=== PATIENT | female | born 1990 | race Caucasian/White ===

== ENCOUNTER 2020-03-06 19:36 | Emergency (ER) | payer BC, OTHER ==
[2020-03-06] MEDS ORDERED: Sodium Chloride 0.9% 10 ML Syringe FLUSH PRN (19:44)
[2020-03-06] MEDS ORDERED: diphenhydrAMINE 50 MG/ML SDV IVPUSH ONE (19:47)
[2020-03-06] MEDS ORDERED: Lactated Ringers 1,000 ML IV ONE (19:47)
[2020-03-06] MEDS ORDERED: HYDROmorphone 0.5 MG/0.5 ML Syringe IV ONE ×2 (19:47→20:48)
--- NOTE | 2020-03-06 20:02 | EDM.PDOC ---
ED HPI GENERAL MEDICAL PROBLEM - General Stated Complaint: pelvic pain Time Seen by Provider: 03/06/20 19:45 Source of Information: Reports: Patient, RN Notes Reviewed - History of Present Illness INITIAL COMMENTS - FREE TEXT/NARRATIVE: Patient comes emergency department today with a rather abrupt onset of right lower abdominal pelvic pain starting at 1930 tonight. Patient has never had pain like this. Pain started rather abruptly at 1930 in her right lower abdomen and pelvic region. She started her menstrual cycle yesterday which was normal. It is the normal 28-day cycle for her. She is unsure if she has any risk of . She has had normal vaginal bleeding for her typical menstrual cycle. She has had no surgeries in the past. She has had some nausea without vomiting. No fever no chills. No hematuria dysuria or urinary frequency. No flank pain. No diarrhea. NO COVID exposure No COVID exposure. Onset: Sudden Onset Date: 03/06/20 Onset Time: 19:30 Right low pelvic pain Pain Score (Numeric/FACES): 10 - Related Data Allergies Allergy/AdvReac Type Severity Reaction Status Date / Time No Known Allergies Allergy Verified 03/06/20 20:24 Home Meds: Home Meds . [No Known Home Meds] 03/06/20 [History] ED ROS GENERAL - Review of Systems Review Of Systems: Comprehensive ROS is negative, except as noted in HPI. ED EXAM, GI/ABD - Physical Exam Exam: See Below Text/Narrative:: Patient is moaning and constantly rolling about the cot and appears quite uncomfortable. Exam Limited By: No Limitations General Appearance: Alert, WD/WN, Moderate Distress Eyes: Bilateral: EOMI Ears: Normal External Exam Nose: Normal Inspection Throat/Mouth: Normal Inspection Head: Atraumatic, Normocephalic Neck: Normal Inspection, Supple, Non-Tender Respiratory/Chest: No Respiratory Distress, Lungs Clear, Normal Breath Sounds, No Accessory Muscle Use, Chest Non-Tender Cardiovascular: Normal Peripheral Pulses, Regular Rate, Rhythm GI/Abdominal Exam: Normal Bowel Sounds, Soft, Guarding (Very low RLQ pelvis region. Negative McBurneys point. ). No: Rigid, Rebound (Female) Exam: Deferred Rectal (Female) Exam: Deferred Back Exam: Normal Inspection, Full Range of Motion Extremities: Normal Inspection, Normal Range of Motion, Normal Capillary Refill Neurological: Alert, Oriented, Normal Cognition, No Motor/Sensory Deficits Psychiatric: Normal Affect, Normal Mood Skin Exam: Warm, Dry, Intact, Normal Color, No Rash Lymphatic: No Adenopathy Course - Vital Signs Last Recorded V/S: Last Vital Signs Temp 97 F 03/06/20 19:36 Pulse 72 03/06/20 19:36 Resp 24 H 03/06/20 19:36 BP 140/83 03/06/20 19:36 Pulse Ox 100 03/06/20 19:36 - Orders/Labs/Meds Orders: Active Orders 24 hr Category Date Time Status DRUG SCREEN, URINE (NPL) Stat Lab 03/06/20 19:45 Received Sodium Chloride 0.9% [Saline Flush] Med 03/06/20 19:44 Active 10 ml FLUSH ASDIRECTED PRN Peripheral IV Insertion Adult [OM.PC] Stat Oth 03/06/20 19:44 Ordered Medication Orders Sodium Chloride (Saline Flush) 10 ml FLUSH ASDIRECTED PRN PRN Reason: Keep Vein Open Labs: Laboratory Tests 03/06/20 03/06/20 03/06/20 Range/Units 19:45 19:45 19:55 WBC 12.5 H (4.0-10.0) x10^3/uL RBC 4.50 (4.00-5.50) x10^6/uL Hgb 13.2 (12.0-16.0) g/dL Hct 38.3 (33.0-47.0) % MCV 85.1 (78.0-93.0) fL MCH 29.3 (26.0-32.0) pg MCHC 34.5 (32.0-36.0) g/dL RDW Coeff of Jackson 12.4 (10.0-15.0) % Plt Count 605 H (130-400) x10^3/uL Neut % (Auto) 41.5 L (50.0-80.0) % Lymph % (Auto) 45.2 (25.0-50.0) % [place] % (Auto) 11.7 H (2.0-11.0) % Eos % (Auto) 1.4 (0.0-4.0) % Baso % (Auto) 0.2 (0.2-1.2) % Sodium (136-145) mmol/L Potassium (3.5-5.1) mmol/L Chloride (98-107) mmol/L Carbon Dioxide (21-32) mmol/L Anion Gap (10-20) mmol/L BUN (7-18) mg/dL Creatinine (0.55-1.02) mg/dL Est Cr Clr Drug Dosing Estimated GFR (MDRD) Glucose (74-106) mg/dL Calcium (8.5-10.1) mg/dL Corrected Calcium (8.5-10.1) mg/dL Total Bilirubin (0.2-1.0) mg/dL AST (15-37) U/L ALT (14-59) U/L Alkaline Phosphatase (46-116) U/L Total Protein (6.4-8.2) g/dL Albumin (3.4-5.0) g/dL Globulin Albumin/Globulin Ratio Urine Color Yellow (YELLOW) Urine Appearance Cloudy H (CLEAR) Urine pH 7.5 (5.0-8.0) Ur Specific Hudson 1.025 Urine Protein 30 H (NEGATIVE) mg/dL Urine Glucose (UA) Negative (NEGATIVE) mg/dL Urine Ketones Negative (NEGATIVE) mg/dL Urine Occult Blood Moderate H (NEGATIVE) Urine Nitrite Negative (NEGATIVE) Urine Bilirubin Negative (NEGATIVE) Urine Urobilinogen 1.0 (0.2) EU/dL Ur Leukocyte Esterase Negative (NEGATIVE) Urine RBC 30-40 H (NOT SEEN) /HPF Urine WBC 0-5 (NOT SEEN) /HPF Ur Squamous Epith Cells Few H (NEGATIVE) /HPF Amorphous Sediment Few Urine Bacteria Rare (NEGATIVE) /HPF Urine Mucus Occasional H (NEGATIVE) /LPF Urine HCG, Qual Negative (NEGATIVE) 03/06/20 Range/Units 19:55 WBC (4.0-10.0) x10^3/uL RBC (4.00-5.50) x10^6/uL Hgb (12.0-16.0) g/dL Hct (33.0-47.0) % MCV (78.0-93.0) fL MCH (26.0-32.0) pg MCHC (32.0-36.0) g/dL RDW Coeff of Jackson (10.0-15.0) % Plt Count (130-400) x10^3/uL Neut % (Auto) (50.0-80.0) % Lymph % (Auto) (25.0-50.0) % [place] % (Auto) (2.0-11.0) % Eos % (Auto) (0.0-4.0) % Baso % (Auto) (0.2-1.2) % Sodium 140 (136-145) mmol/L Potassium 3.3 L (3.5-5.1) mmol/L Chloride 103 (98-107) mmol/L Carbon Dioxide 24 (21-32) mmol/L Anion Gap 16.3 (10-20) mmol/L BUN 18 (7-18) mg/dL Creatinine 1.1 H (0.55-1.02) mg/dL Est Cr Clr Drug Dosing TNP Estimated GFR (MDRD) 58 Glucose 122 H (74-106) mg/dL Calcium 9.3 (8.5-10.1) mg/dL Corrected Calcium 9.06 (8.5-10.1) mg/dL Total Bilirubin 0.3 (0.2-1.0) mg/dL AST 15 (15-37) U/L ALT 18 (14-59) U/L Alkaline Phosphatase 54 (46-116) U/L Total Protein 7.3 (6.4-8.2) g/dL Albumin 4.3 (3.4-5.0) g/dL Globulin 3.0 Albumin/Globulin Ratio 1.43 Urine Color (YELLOW) Urine Appearance (CLEAR) Urine pH (5.0-8.0) Ur Specific [place] Urine Protein (NEGATIVE) mg/dL Urine Glucose (UA) (NEGATIVE) mg/dL Urine Ketones (NEGATIVE) mg/dL Urine Occult Blood (NEGATIVE) Urine Nitrite (NEGATIVE) Urine Bilirubin (NEGATIVE) Urine Urobilinogen (0.2) EU/dL Ur Leukocyte Esterase (NEGATIVE) Urine RBC (NOT SEEN) /HPF Urine WBC (NOT SEEN) /HPF Ur Squamous Epith Cells (NEGATIVE) /HPF Amorphous Sediment Urine Bacteria (NEGATIVE) /HPF Urine Mucus (NEGATIVE) /LPF Urine HCG, Qual (NEGATIVE) Meds: Medications Generic Name Dose Route Start Last Admin Trade Name Freq PRN Reason Stop Dose Admin Sodium Chloride 10 ml 03/06/20 19:44 Saline Flush FLUSH ASDIRECTED PRN Keep Vein Open Discontinued Medications Generic Name Dose Route Start Last Admin Trade Name Freq PRN Reason Stop Dose Admin Diphenhydramine HCl 25 mg 03/06/20 19:47 03/06/20 20:00 Benadryl IVPUSH 03/06/20 19:48 25 mg ONETIME ONE Administration Hydromorphone HCl 0.5 mg 03/06/20 19:47 03/06/20 19:58 Dilaudid IV 03/06/20 19:48 0.5 mg ONETIME ONE Administration Hydromorphone HCl 1 mg 03/06/20 20:09 03/06/20 20:15 Dilaudid IVPUSH 03/06/20 20:10 1 mg ONETIME ONE Administration Hydromorphone HCl 0.5 mg 03/06/20 20:48 03/06/20 20:54 Dilaudid IV 03/06/20 20:49 0.5 mg ONETIME ONE Administration Hydromorphone HCl 1 mg 03/06/20 21:20 Dilaudid IVPUSH 03/06/20 21:21 ONETIME ONE Lactated Ringer's 1,000 mls @ 999 mls/hr 03/06/20 19:47 03/06/20 19:50 Ringers, Lactated IV 03/06/20 20:47 999 mls/hr ONETIME ONE Administration - Re-Assessments/Exams Free Text/Narrative Re-Assessment/Exam: 03/06/20 20:02 IV LR 1 liter wide open. Benadryl for nausea 25mg IVP Dilaudid 0.5mg IVP for pain Labs drawn UA obtained. 03/06/20 20:21 Patient did not have much pain relief with the initial dose of Dilaudid we repeated her milligram of Dilaudid but although she was still quite uncomfortable. Reexamination of her abdomen shows a very tender guarding rebound to the right very low abdomen more pelvic region. Still a negative McBurney sign. The rest of the abdomen is soft. Her urine hCG is negative. Her white count is minimally elevated at 12.5. With her abrupt onset of very low right lower pelvic pain I have concerns for an acute ovarian torsion. We do not have ultrasound available to evaluate this. I called at 2019 to [facility] call to see if we could transfer her for an ultrasound to evaluate for a possible ovarian torsion. They will call back they are busy with other calls at this time. 03/06/20 21:28 I finally called again and got ahold of Dr. Yap at [facility] in the ED. HPI ER COURSE findings and concerns were relayed for the concern of a ovarian torsion and her pain has yet again returned and she is quite uncomfortable and rolling about in the bed again. He accepted the patient in transfer at this time. I discussed the plan of care with the patient and she was given another dose of Dilaudid. She is comfortable with this plan and her questions answered. Departure - Departure Time of Disposition: 21:18 Disposition: DC/Tfer to [facility] 02 Clinical Impression: Pelvic pain - Discharge Information Referrals: Rohit Arredondo PA-C [Primary Care Provider] - Forms: Interfacility Transfer [facility] Sepsis Event Note (ED) - Focused Exam Vital Signs: Vital Signs Temp Pulse Resp BP Pulse Ox 03/06/20 19:36 97 F 72 24 H 140/83 100 - My Orders Last 24 Hours: My Active Orders 03/06/20 19:44 Sodium Chloride 0.9% [Saline Flush] 10 ml FLUSH ASDIRECTED PRN Peripheral IV Insertion Adult [OM.PC] Stat 03/06/20 19:45 DRUG SCREEN, URINE (NPL) Stat - Assessment/Plan Last 24 Hours: My Active Orders 03/06/20 19:44 Sodium Chloride 0.9% [Saline Flush] 10 ml FLUSH ASDIRECTED PRN Peripheral IV Insertion Adult [OM.PC] Stat 03/06/20 19:45 DRUG SCREEN, URINE (NPL) Stat Assessment:: Very low right abd more pelvic pain. Concerns for ovarian torsion. Plan: Transfer by ambulance to [facility] for further care and evaluation.
[2020-03-06] MEDS ORDERED: HYDROmorphone 1 MG/ML Syringe IVPUSH ONE ×2 (20:09→21:20)
[2020-03-06 20:15] LABS: CHLORIDE,CL 103 mmol/L (98-107); SODIUM,NA 140 mmol/L (136-145)
[2020-03-06 20:17] LABS: ANION GAP 16.3 mmol/L (10-20)
== END 2020-03-06 21:46 | disposition short-term general hospital (02) ==
LOC: VM.ED 19:36
DX: R10.2 Pelvic and perineal pain (principal)
CPT/HCPCS: 80053; 80307; 81001; 81025; 85025; 96374; 96375; 96376; 99283; 99285-25; J1170; J1200; J7120

== ENCOUNTER 2021-01-21 14:44 | Emergency (ER) | payer MEDICAID ==
[2021-01-21] MEDS ORDERED: Acetaminophen/HYDROcodone 325-5 MG Tab PO ONE (14:53)
[2021-01-21] MEDS ORDERED: Ibuprofen 200 MG Tab PO ONE (14:53)
[2021-01-21] MEDS ORDERED: Take Home: Acetaminophen/HYDROcodone 325-5 MG, 5 Tab Pack PO ONE (15:31)
--- NOTE | 2021-01-21 15:35 | CR ---
[id number] RAD/RAD Wrist Left 3V Min EXAM: 4 VIEWS LEFT WRIST. INDICATION: FALL, LEFT WRIST PAIN. COMPARISON: None. DISCUSSION: Acute impacted and angulated fracture of the distal left radial metaphysis. There is extension of the fracture into the radiocarpal joint. Additionally there is a minimally displaced left ulnar styloid fracture. No other fractures are identified. IMPRESSION: 1. As above. Rafat Fernández DO 01/21/21 1533 Thank you for allowing us to participate in the care of your patient.
--- NOTE | 2021-01-21 19:35 | EDM.PDOC ---
ED HPI GENERAL MEDICAL PROBLEM - General Chief Complaint: Upper Extremity Injury/Pain Stated Complaint: POSSIBLE BROKEN WRIST Time Seen by Provider: 01/21/21 14:45 Source of Information: Reports: Patient History Limitations: Reports: No Limitations - History of Present Illness INITIAL COMMENTS - FREE TEXT/NARRATIVE: Pt. presents to ER with complaints of L wrist pain post fall. Pt. states that she fell while attempting to use a hoverboard. Denies injury elsewhere. Pt. is complaining of significant L wrist/distal forearm pain. No significant neurovascular complaints. She was able to ambulate into ER on her own. Onset: Today Location: Reports: Upper Extremity, Left Quality: Reports: Ache, Throbbing Left Wrist Pain Score (Numeric/FACES): 10 - Related Data Allergies Allergy/AdvReac Type Severity Reaction Status Date / Time No Known Allergies Allergy Verified 01/21/21 14:53 Home Meds: Home Meds . [No Known Home Meds] 03/06/20 [History] Past Medical History - Past Health History Medical/Surgical History: Denies Medical/Surgical History [employer]MENT [employer] History: Reports: Social & Family History - Tobacco Use Tobacco Use Status *Q: Never Tobacco User Review of Systems - Review of Systems Review Of Systems: See Below Musculoskeletal: Reports: Arm Pain, Joint Pain Skin: Reports: No Symptoms ED EXAM, GENERAL - Physical Exam Exam: See Below Exam Limited By: No Limitations General Appearance: Alert, WD/WN, No Apparent Distress Extremities: Normal Capillary Refill, Joint Swelling, Arm Pain, Limited Range of Motion. No: Mottled, Pallor ED TRAUMA EXTREMITY PROCEDURES - Splinting Left Upper Extremity Pre-Procedure NV Status: Normal Post-Procedure NV Status: Normal Splint Material: Fiberglass Splint Design: Volar Applied & Form Fitted By: Provider, Nurse Provider Post-Splint Application NV Check: NV Status Normal, Good Position Complications: No Course - Vital Signs Last Recorded V/S: Last Vital Signs Temp 36.9 C 01/21/21 14:45 Pulse 79 01/21/21 14:45 Resp 16 01/21/21 14:45 BP 152/90 H 01/21/21 14:45 Pulse Ox 100 01/21/21 14:45 - Orders/Labs/Meds Meds: Medications Discontinued Medications Generic Name Dose Route Start Last Admin Trade Name Freq PRN Reason Stop Dose Admin Hydrocodone Bitart/Acetaminophen 1 tab 01/21/21 14:53 01/21/21 14:59 Acetaminophen/Hydrocodone 325-5 Mg Tab PO 01/21/21 14:54 1 tab ONETIME ONE Administration Hydrocodone Bitart/Acetaminophen 1 packet 01/21/21 15:31 01/21/21 15:35 Take Home: Acetaminophen/Hydrocodone 325-5 Mg, 5 Tab Pack PO 01/21/21 15:32 1 packet ONETIME ONE Administration Ibuprofen 600 mg 01/21/21 14:53 01/21/21 14:59 Ibuprofen 200 Mg Tab PO 01/21/21 14:54 600 mg ONETIME ONE Administration - Radiology Interpretation Free Text/Narrative:: Impacted L distal radius fracture and ulnar styloid fracture were noted. Departure - Departure Time of Disposition: 16:00 Disposition: Home, Self-Care 01 Condition: Good Clinical Impression: Distal radius fracture, left - Discharge Information Instructions: Acetaminophen; Hydrocodone tablets or capsules, Radial Fracture, Wrist Splint, Adult Referrals: Rohit Arredondo PA-C [Primary Care Provider] - Forms: ED Department Discharge Additional Instructions: Either [facility] or I will contact your regarding an appointment. Keep arm elevated. Ice for 20 min every hour Keep splint on an dry. Ibuprofen 200mg 3 tabs every 6 hours Lortab 5/325mg 1 every 4-6 hours as needed for pain Sepsis Event Note (ED) - Evaluation Sepsis Screening Result: No Definite Risk - Focused Exam Vital Signs: Vital Signs Temp Pulse Resp BP Pulse Ox 01/21/21 14:45 36.9 C 79 16 152/90 H 100 - Problem List Review Problem List Initiated/Reviewed/Updated: Yes - Assessment/Plan Plan: Attempted calling to discuss case with [facility] approx. 6 times, but the line was busy every time. Will work on getting the patient a follow-up appointment set up tomorrow when the clinic is open. Fracture does not require immediate reduction, and CMS is intact to the extremity. Fibreglas volar splint was placed. Pt. was started on lortab 5/325mg with instructions to take one every 4-6 hours.
== END 2021-01-21 15:40 | disposition home or self-care (01) ==
LOC: VM.ED 14:44
DX: S52.592A Other fractures of lower end of left radius, initial encounter for closed fracture (principal); S52.612A Displaced fracture of left ulna styloid process, initial encounter for closed fracture; V00.848A Other accident with standing micro-mobility pedestrian conveyance, initial encounter
CPT/HCPCS: 29125; 73110-LT; 99283; 99283-25; A9270-GY

== ENCOUNTER 2021-02-17 03:35 | Emergency (ER) | payer MEDICAID ==
[2021-02-17] MEDS ORDERED: Orphenadrine 60 MG/2 ML Inj IM STA (03:56)
[2021-02-17] MEDS ORDERED: Ketorolac 30 MG/ML SDV IM ONE (03:56)
--- NOTE | 2021-02-17 03:56 | EDM.PDOC ---
ED HPI GENERAL MEDICAL PROBLEM - General Chief Complaint: Abdominal Pain Stated Complaint: Low abdominal cramping, recent IUD placement Time Seen by Provider: 02/17/21 03:45 Source of Information: Reports: Patient History Limitations: Reports: No Limitations - History of Present Illness INITIAL COMMENTS - FREE TEXT/NARRATIVE: Patient comes emergency department today with complaints of abdominal cramping. This patient on Thursday had a IUD placed in the clinic. Shortly after the placement of the IUD she has had continued what she relates as. Cramping in her low abdomen that radiates into her back. This has been constant and persistent since the placement of her IUD on Thursday. She has had a small amount of vaginal bleeding. She has had no urinary frequency dysuria or hematuria. No fever no chills. The symptoms have been the same since the placement of her IUD. She did have an ultrasound on 02/14/2021 which she was told showed a appropriately placed intrauterine IUD. She has no vaginal discharge. She has been taking Tylenol and ibuprofen with improvement of pain but it continues. No flank pain. No weakness dizziness lightheadedness. No cough or congestion. No chest pain. low abdomen Pain Score (Numeric/FACES): 8 - Related Data Allergies Allergy/AdvReac Type Severity Reaction Status Date / Time No Known Allergies Allergy Verified 02/17/21 07:36 Home Meds: Home Meds Ketorolac [Toradol] 10 mg PO Q6H PRN #8 tab 02/17/21 [Rx] Orphenadrine [Norflex] 100 mg PO BID PRN #4 tab 02/17/21 [Rx] Past Medical History - Past Health History Medical/Surgical History: Denies Medical/Surgical History [employer] History: Reports: ED ROS GENERAL - Review of Systems Review Of Systems: Comprehensive ROS is negative, except as noted in HPI. ED EXAM, GI/ABD - Physical Exam Exam: See Below Exam Limited By: No Limitations General Appearance: Alert, WD/WN, No Apparent Distress Respiratory/Chest: No Respiratory Distress, Lungs Clear, Normal Breath Sounds, No Accessory Muscle Use, Chest Non-Tender Cardiovascular: Normal Peripheral Pulses, Regular Rate, Rhythm GI/Abdominal Exam: Normal Bowel Sounds, Soft, Non-Tender Back Exam: Normal Inspection. No: CVA Tenderness (L), CVA Tenderness (R) Extremities: Normal Inspection, Normal Range of Motion, No Pedal Edema, Normal Capillary Refill Neurological: Alert, Oriented, Normal Cognition, No Motor/Sensory Deficits Psychiatric: Normal Affect, Normal Mood Skin Exam: Warm, Dry, Intact, Normal Color, No Rash Lymphatic: No Adenopathy Course - Vital Signs Last Recorded V/S: Last Vital Signs Temp 97.7 F 02/17/21 03:35 Pulse 77 02/17/21 03:35 Resp 16 02/17/21 03:35 BP 118/81 02/17/21 03:35 Pulse Ox - Orders/Labs/Meds Labs: Laboratory Tests 02/17/21 02/17/21 02/17/21 Range/Units 03:54 03:54 03:54 WBC 5.4 (4.0-10.0) x10^3/uL RBC 4.57 (4.00-5.50) x10^6/uL Hgb 13.3 (12.0-16.0) g/dL Hct 39.1 (33.0-47.0) % MCV 85.6 (78.0-93.0) fL MCH 29.1 (26.0-32.0) pg MCHC 34.0 (32.0-36.0) g/dL RDW Coeff of [place] 12.9 (10.0-15.0) % Plt Count 335 (130-400) x10^3/uL Immature Gran % (Auto) 0.00 (0.00-0.43) % Neut % (Auto) 47.9 L (50.0-80.0) % Lymph % (Auto) 35.9 (25.0-50.0) % Branch % (Auto) 15.1 H (2.0-11.0) % Eos % (Auto) 0.7 (0.0-4.0) % Baso % (Auto) 0.4 (0.2-1.2) % Neut # (Auto) 2.6 (1.8-7.7) x10^3/uL Lymph # (Auto) 1.9 (1.0-4.8) x10^3/uL Branch # (Auto) 0.8 (0.0-0.8) x10^3/uL Eos # (Auto) 0.0 (0.0-0.5) x10^3/uL Baso # (Auto) 0.0 (0.0-0.2) x10^3/uL Immature Gran # (Auto) 0.00 (0.00-0.07) x10^3/uL Sodium 142 (136-145) mmol/L Potassium 3.6 (3.5-5.1) mmol/L Chloride 106 (98-107) mmol/L Carbon Dioxide 28 (21-32) mmol/L Anion Gap 11.6 (5-15) mmol/L BUN 15 (7-18) mg/dL Creatinine 0.7 (0.55-1.02) mg/dL Est Cr Clr Drug Dosing TNP Estimated GFR (MDRD) > 60 Glucose 91 (70-99) mg/dL Lactic Acid 1.4 (0.4-2.0) mmol/L Calcium 8.5 (8.5-10.1) mg/dL Corrected Calcium 8.8 (8.5-10.1) mg/dL Total Bilirubin 0.2 (0.2-1.0) mg/dL AST 14 L (15-37) U/L ALT 17 (14-59) U/L Alkaline Phosphatase 64 (46-116) U/L Total Protein 6.8 (6.4-8.2) g/dL Albumin 3.6 (3.4-5.0) g/dL Globulin 3.2 Albumin/Globulin Ratio 1.13 Urine Color (YELLOW) Urine Appearance (CLEAR) Urine pH (5.0-8.0) Ur Specific [place] Urine Protein (NEGATIVE) mg/dL Urine Glucose (UA) (NEGATIVE) mg/dL Urine Ketones (NEGATIVE) mg/dL Urine Occult Blood (NEGATIVE) Urine Nitrite (NEGATIVE) Urine Bilirubin (NEGATIVE) Urine Urobilinogen (0.2) EU/dL Ur Leukocyte Esterase (NEGATIVE) Urine RBC (NOT SEEN) /HPF Urine WBC (NOT SEEN) /HPF Ur Squamous Epith Cells (NOT SEEN) /HPF Calcium Oxalate Crystal (NOT SEEN) /HPF Urine Bacteria (NOT SEEN) /HPF Urine Mucus (NOT SEEN) /LPF Urine HCG, Qual (NEGATIVE) 02/17/21 02/17/21 Range/Units 04:20 04:20 WBC (4.0-10.0) x10^3/uL RBC (4.00-5.50) x10^6/uL Hgb (12.0-16.0) g/dL Hct (33.0-47.0) % MCV (78.0-93.0) fL MCH (26.0-32.0) pg MCHC (32.0-36.0) g/dL RDW Coeff of [place] (10.0-15.0) % Plt Count (130-400) x10^3/uL Immature Gran % (Auto) (0.00-0.43) % Neut % (Auto) (50.0-80.0) % Lymph % (Auto) (25.0-50.0) % Branch % (Auto) (2.0-11.0) % Eos % (Auto) (0.0-4.0) % Baso % (Auto) (0.2-1.2) % Neut # (Auto) (1.8-7.7) x10^3/uL Lymph # (Auto) (1.0-4.8) x10^3/uL Branch # (Auto) (0.0-0.8) x10^3/uL Eos # (Auto) (0.0-0.5) x10^3/uL Baso # (Auto) (0.0-0.2) x10^3/uL Immature Gran # (Auto) (0.00-0.07) x10^3/uL Sodium (136-145) mmol/L Potassium (3.5-5.1) mmol/L Chloride (98-107) mmol/L Carbon Dioxide (21-32) mmol/L Anion Gap (5-15) mmol/L BUN (7-18) mg/dL Creatinine (0.55-1.02) mg/dL Est Cr Clr Drug Dosing Estimated GFR (MDRD) Glucose (70-99) mg/dL Lactic Acid (0.4-2.0) mmol/L Calcium (8.5-10.1) mg/dL Corrected Calcium (8.5-10.1) mg/dL Total Bilirubin (0.2-1.0) mg/dL AST (15-37) U/L ALT (14-59) U/L Alkaline Phosphatase (46-116) U/L Total Protein (6.4-8.2) g/dL Albumin (3.4-5.0) g/dL Globulin Albumin/Globulin Ratio Urine Color Yellow (YELLOW) Urine Appearance Clear (CLEAR) Urine pH 6.0 (5.0-8.0) Ur Specific [place] >=1.030 Urine Protein Negative (NEGATIVE) mg/dL Urine Glucose (UA) Negative (NEGATIVE) mg/dL Urine Ketones Negative (NEGATIVE) mg/dL Urine Occult Blood Small H (NEGATIVE) Urine Nitrite Negative (NEGATIVE) Urine Bilirubin Negative (NEGATIVE) Urine Urobilinogen 0.2 (0.2) EU/dL Ur Leukocyte Esterase Negative (NEGATIVE) Urine RBC 0-5 (NOT SEEN) /HPF Urine WBC 0-5 (NOT SEEN) /HPF Ur Squamous Epith Cells Few H (NOT SEEN) /HPF Calcium Oxalate Crystal Few H (NOT SEEN) /HPF Urine Bacteria Occasional H (NOT SEEN) /HPF Urine Mucus Moderate H (NOT SEEN) /LPF Urine HCG, Qual Negative (NEGATIVE) Meds: Medications Discontinued Medications Generic Name Dose Route Start Last Admin Trade Name Freq PRN Reason Stop Dose Admin Ketorolac Tromethamine 30 mg 02/17/21 03:56 02/17/21 04:40 Ketorolac 30 Mg/Ml Sdv IM 02/17/21 03:57 30 mg ONETIME ONE Administration Ketorolac Tromethamine 1 packet 02/17/21 05:33 02/17/21 05:55 Take Home: Ketorolac 10 Mg Tab, 4 Tab Pack PO 02/17/21 05:34 1 packet ONETIME ONE Administration Orphenadrine Citrate 60 mg 02/17/21 03:56 02/17/21 04:40 Orphenadrine 60 Mg/2 Ml Inj IM 02/17/21 03:57 60 mg NOW STA Administration Orphenadrine Citrate 1 packet 02/17/21 05:34 02/17/21 05:55 Take Home: Orphenadrine 100 Mg Tab.Er, 4 Tab Pack PO 02/17/21 05:35 1 packet ONETIME ONE Administration - Radiology Interpretation Free Text/Narrative:: Bilateral minimal nephrolithiasis. No hydronephrosis. IUD with an anteverted uterus. Nonobstructing nephrolithiasis. No bowel obstruction pneumoperitoneum or pneumatosis. The bones are intact. All per radiology - Re-Assessments/Exams Free Text/Narrative Re-Assessment/Exam: 02/17/21 03:54 I did review her ultrasound that was completed 02-14-21. Per the radiologist report shows intrauterine device appears to be appropriately positioned within the endometrial canal. Small echogenic focus within the right ovary measures 3 mm. This is nonspecific and may represent small calcification it is new compared to 02/2020. This is likely an incidental finding. Otherwise unremarkable appearance of the uterus and adnexa. No free fluid within the posterior cul-de-sac. 02/17/21 05:03 Patient was given Toradol 30 mg IM. Norflex 60 mg IM. Laboratory evaluation with a normal CBC, normal CMP Urinalysis shows small amount of occult blood she also has calcium oxalate crystals in her urine. She does relate that she has had a kidney stone in the past. Urine hCG is negative. I think that it is unlikely for IUD to be misplaced at this time as she had an ultrasound in the clinic after the placement of the IUD which was also after the development of her symptomology. I did attempt a POCUS bedside ultrasound. Her bladder was not very full and I was unable to identify where her uterus was and she had quite a bit of bowel gas as well to just superiorly. We will complete a CT scan at this time to ensure that her symptoms are not more kidney stone in nature which will also give us an idea of where her IUD is placed. CT exam showed appropriate placement of the IUD in an anteverted uterus. No sign of kidney stones. Her pain is much improved with the ketorolac as well as the orphenadrine. We will discharge her home at this time with some ketorolac and orphenadrine. Contact her PCP who placed the IUD. Anything new or worse she is to recheck. She is good with this plan and her questions are answered. Departure - Departure Time of Disposition: 05:50 Disposition: Home, Self-Care 01 Clinical Impression: Pelvic cramping - Discharge Information Prescriptions: Orphenadrine [Norflex] 100 mg PO BID PRN #4 tab PRN Reason: Cramping Ketorolac [Toradol] 10 mg PO Q6H PRN #8 tab PRN Reason: Pain Instructions: Pelvic Pain, Female, [id number] Referrals: PCP,None [Primary Care Provider] - Forms: ED Department Discharge Additional Instructions: Make sure and drink plenty of fluids. Ketorolac 1 tablet every 6 hrs with food as needed for pain. DO NOT TAKE WITH OTHER NSAIDs, like ibuprofen motrin naproxen aleve etc. Starter pack from the ED and RX sent to your pharmacy. Orphenadrine 1 tablet by mouth twice daily as needed for pelvic pain cramping. starter pack sent home from the ED and RX sent to [facility] pharmacy. Follow up by phone with your provider who placed the IUD by phone or [place] Chart. Return to the ED if new or worsening symptoms.
[2021-02-17 04:23] LABS: ANION GAP 11.6 mmol/L (5-15); CHLORIDE,CL 106 mmol/L (98-107); SODIUM,NA 142 mmol/L (136-145)
[2021-02-17] MEDS ORDERED: Take Home: Ketorolac 10 MG Tab, 4 Tab Pack PO ONE (05:33)
[2021-02-17] MEDS ORDERED: Take Home: Orphenadrine 100 MG Tab.ER, 4 Tab Pack PO ONE (05:34)
--- NOTE | 2021-02-17 08:15 | CT ---
[id number] CT/CT Abdomen Pelvis WO IV Exam: CT Abdomen Pelvis WO IV Clinical Data: FLANK PAIN HEMATURIA COMPARISON: NO PREVIOUS SIMILAR EXAM IS AVAILABLE FINDINGS: There are tiny calculi of both kidneys There is no hydronephrosis There is no ureteral calculus There appears to be a small segment VIII hepatic cyst There is no appendicitis The gallbladder is unremarkable There is no free air or free fluid There is no bowel distention The pancreas, aorta, adrenals, and spleen show no obvious abnormalities There is an intrauterine device in place The pelvis shows no mass or adenopathy IMPRESSION: BILATERAL MINIMAL NEPHROLITHIASIS NO HYDRONEPHROSIS Joao Nash MD 02/17/21 [id number] Thank you for allowing us to participate in the care of your patient.
== END 2021-02-17 06:03 | disposition home or self-care (01) ==
LOC: VM.ED 03:35
DX: R10.2 Pelvic and perineal pain (principal)
CPT/HCPCS: 36415; 74176; 80053; 81001; 81025; 83605; 85025; 96372; 99284; 99284-25; A9270-GY; J1885; J2360

== ENCOUNTER 2022-09-14 10:41 | Emergency (ER) | payer MEDICAID | END 2022-09-14 11:41 | disposition left against medical advice (07) | LOC: VM.ED 10:41 | DX: Z53.21 Procedure and treatment not carried out due to patient leaving prior to being seen by health care provider (principal) ==